=== PATIENT | female | born 1985 | race Two or more races ===

== ENCOUNTER 2021-02-17 08:21 | Emergency (ER) | payer OTHER ==
[~2021-02-17] VITALS: Ht 160 cm; Wt 88.6 kg
[2021-02-17 10:00] VITALS: BP 124/74
== END 2021-02-17 10:17 | disposition home or self-care (01) ==
LOC: ED 10:10
DX: S90.121A Contusion of right lesser toe(s) without damage to nail, initial encounter (principal); I10 Essential (primary) hypertension; X58.XXXA Exposure to other specified factors, initial encounter; Y93.89 Activity, other specified; Y92.828 Other wilderness area as the place of occurrence of the external cause; Y99.8 Other external cause status
CPT/HCPCS: 99283